=== PATIENT | female | born 1990 | race Hispanic/Latino ===

== ENCOUNTER 2023-06-28 10:16 | Emergency (ER) | payer SELFPAY ==
--- NOTE | 2023-06-28 10:55 | ER ---
Nurse's Notes [facility] Name: Merry Bryant Age: 32 yrs Sex: Female : 1990 Arrival Date: 06/28/2023 Time: 10:16 Bed 18 Private MD: Diagnosis: Staple removal Presentation: 06/27 10:49 Chief complaint: Received 4 trevin to top of head 10 days ago, here for removal. hb Coronavirus screen: At this time, the client does not indicate any symptoms associated with coronavirus-19. Ebola Screen: No symptoms or risks identified at this time. Initial Sepsis Screen: Does the patient meet any 2 criteria? No. Patient's initial sepsis screen is negative. Does the patient have a suspected source of infection? No. Patient's initial sepsis screen is negative. Risk Assessment: Do you want to hurt yourself or someone else? Patient reports no desire to harm self or others. Onset of symptoms was June 28, 2023. 10:49 Method Of Arrival: Ambulatory hb 10:49 Acuity: CAROL 4 hb Triage Assessment: 10:50 General: Appears in no apparent distress. Behavior is calm, cooperative. Pain: Denies hb pain. Neuro: Level of Consciousness is awake, alert, obeys commands, Oriented to person, place, time, situation. Cardiovascular: Patient's skin is warm and dry. Respiratory: Respiratory effort is even, unlabored, Respiratory pattern is regular, symmetrical. Historical: - Allergies: 10:50 No Known Allergies; hb - Home Meds: 10:50 None [Active]; hb - PMHx: 10:50 None; hb - PSHx: 10:50 None; hb - Immunization history:: Adult Immunizations up to date. - Infectious Disease History:: Denies. - Social history:: Smoking status: Patient denies any tobacco usage or history of. Screenin:[address] [facility] ED Fall Risk Assessment (Adult) History of falling in the last 3 months, db including since admission No falls in past 3 months (0 pts) Confusion or Disorientation No (0 pts) Intoxicated or Sedated No (0 pts) Impaired Gait No (0 pts) Mobility Assist Device Used No (0 pt) Altered Elimination No (0 pt) Score/Fall Risk Level 0 - 2 = Low Risk Oriented to surroundings, Maintained a safe environment. Abuse screen: Denies threats or abuse. Denies injuries from another. Nutritional screening: No deficits noted. 10:51 Tuberculosis screening: No symptoms or risk factors identified. db Assessment: 10:51 Reassessment: Patient appears in no apparent distress at this time. Patient and/or db family updated on plan of care and expected duration. Pain level reassessed. Patient is alert, oriented x 3, equal unlabored respirations, skin warm/dry/pink. Derm: HEALED WOUND FROM SUTURES. Vital Signs: 10:49 BP 127 / 73; Pulse 73; Resp 16; Temp 98.1; Pulse Ox 100% on R/A; Weight 54.43 kg; hb Height 5 ft. 4 in. ; Pain 0/10; 10:49 Body Mass Index 20.60 (54.43 kg, 162.56 cm) hb 10:49 Pain Scale: Adult hb ED Course: 10:22 Patient arrived in ED. mr 10:34 Fang Mejía MD is Attending Physician. sp3 10:44 Katlyn Cruz, RN is Primary Nurse. db 10:50 Triage completed. hb 10:50 Removal of Removed trevin from scalp Trevin site is well healed 4 TREVIN REMOVED db Patient tolerated well. 10:51 No provider procedures requiring assistance completed. Patient did not have IV access db during this emergency room visit. 10:51 Arm band placed on. hb 10:51 Patient has correct armband on for positive identification. Bed in low position. Call db light in reach. Side rails up X 1. Provided Education on: AT HOME CARE. Pulse ox on. NIBP on. Administered Medications: No medications were administered Medication: 10:51 VIS not applicable for this client. db Outcome: 10:51 Discharged to home ambulatory, db 10:51 Condition: stable 10:51 Discharge instructions given to patient, Instructed on discharge instructions, follow up and referral plans. 10:54 Discharge ordered by . sp3 10:56 Patient left the ED. db Signatures: Veronica Ellis, Iris Jacobo, RN RN Fang Mejía MD MD sp3 Katlyn Cruz, RN RN db
--- NOTE | 2023-06-28 10:55 | EDPHYS ---
Physician Documentation [facility] Name: Merry Bryant Age: 32 yrs Sex: Female : 1990 Arrival Date: 06/28/2023 Time: 10:16 Bed 18 Private MD: ED Physician Fang Mejía HPI: 06/27 10:52 This 32 yrs old Female presents to ER via Ambulatory with complaints of Staple sp3 Removal. 10:52 32-year-old female with scalp injury 1 week ago presents for staple removal. Repair was sp3 not performed here. 4 ying were placed. Patient has had no complications, headache or any other symptoms subsequent to the injury.. Historical: - Allergies: 10:50 No Known Allergies; hb - Home Meds: 10:50 None [Active]; hb - PMHx: 10:50 None; hb - PSHx: 10:50 None; hb - Immunization history:: Adult Immunizations up to date. - Infectious Disease History:: Denies. - Social history:: Smoking status: Patient denies any tobacco usage or history of. ROS: 10:53 Constitutional: Negative for fever, chills, and weight loss, Eyes: Negative for injury, sp3 pain, redness, and discharge, ENT: Negative for injury, pain, and discharge, Neck: Negative for injury, pain, and swelling, Cardiovascular: Negative for chest pain, palpitations, and edema, Respiratory: Negative for shortness of breath, cough, wheezing, and pleuritic chest pain, Abdomen/GI: Negative for abdominal pain, nausea, vomiting, diarrhea, and constipation, Back: Negative for injury and pain, 10:53 All other systems are negative, Exam: 10:53 Constitutional: This is a well developed, well nourished patient who is awake, alert, sp3 and in no acute distress. Head/Face: Normocephalic, atraumatic. 10:53 Head/face: 4 ying removed by nursing staff. Post removal demonstrates no signs of infection or bleeding.. Vital Signs: 10:49 BP 127 / 73; Pulse 73; Resp 16; Temp 98.1; Pulse Ox 100% on R/A; Weight 54.43 kg; hb Height 5 ft. 4 in. ; Pain 0/10; 10:49 Body Mass Index 20.60 (54.43 kg, 162.56 cm) hb 10:49 Pain Scale: Adult hb MDM: 10:42 Patient medically screened. sp3 10:53 Data reviewed: vital signs, nurses notes. ED course: Patient will be safely discharged sp3 home at this time. No complications from injury and staple removal.. Administered Medications: No medications were administered Disposition Summary: 06/28/23 10:54 Discharge Ordered Notes: Location: Home sp3 Condition: Stable sp3 Diagnosis - Staple removal sp3 Followup: sp3 - With: Private Physician - When: Upon discharge from the Emergency Department - Reason: If symptoms return Discharge Instructions: - Discharge Summary Sheet sp3 - Wound Closure Removal, Care After sp3 Forms: - Medication Reconciliation Form sp3 - Antibiotic Education sp3 - Prescription Opioid Use sp3 - Patient Portal Instructions sp3 - Leadership Thank You Letter sp3 Signatures: Iris Palma, RN RN Fang Mendoza MD MD sp3
[2023-06-29 14:37] VITALS: BP 127/73; TEMP 98.1; O2SAT 100
== END 2023-06-28 10:56 | disposition home or self-care (01) ==
LOC: ER 10:16
DX: Z48.02 Encounter for removal of sutures (principal)
CPT/HCPCS: 99283